=== PATIENT | male | born 1940 | race Caucasian/White ===

== ENCOUNTER 2024-10-17 20:21 | Inpatient (IN) | payer MEDICARE, MEDICAID ==
[~2024-10-17] VITALS: Ht 160 cm; Wt 73.2 kg
[~2024-10-17 20:21] MED LIST: DONE10TA43 PO; MEMA10TA20 PO
[2024-10-17] MEDS: SODIUM CHLORIDE 0.9% (SEPSIS BOLUS) IV ONE (21:18)
[2024-10-17] MEDS: CEFTRIAXONE 1GM/50ML 50 ML IV ONE (21:29)
[2024-10-17 21:37] LABS: BASOPHILS % 0.5 % (0.0-2.0); EOSINOPHILS % 2.5 % (0.0-5.0); HEMATOCRIT. 46.7 % (42.0-52.0); HEMOGLOBIN. 15.6 g/dL (14.0-18.0); LYMPHOCYTES % 15.3 % (20.0-50.0); MEAN CORPUSCULAR HEMOGLOBIN 31.3 pg (28.0-32.0); MEAN CORPUSCULAR HGB CONC 33.4 g/dL (31.0-37.0); MEAN CORPUSCULAR VOLUME 93.6 fL (80.0-94.0); MEAN PLATELET VOLUME 8.4 fl (7.4-10.4); MONOCYTES % 6.3 % (2.0-8.0); NEUTROPHILS % 75.4 % (40.0-76.0); PLATELET 321 x1000/uL (130-400); RED BLOOD CELL COUNT 4.99 mill/uL (4.7-6.1); RED CELL DISTRIBUTION WIDTH 15.1 % (11.6-14.6); WHITE BLOOD COUNT 12.1 x1000/uL (4.5-11.0)
[2024-10-17 21:43] LABS: CHLORIDE 109 mEq/L (98-107); POTASSIUM 3.9 mEq/L (3.5-5.1)
[2024-10-17 21:44] LABS: CARBON DIOXIDE 23 mEq/L (21-32); SODIUM 145 mEq/L (136-145)
[2024-10-17 21:45] LABS: CALCIUM 9.4 mg/dL (8.7-10.4)
[2024-10-17 21:49] LABS: CREATININE 2.1 mg/dL (0.6-1.3); GLUCOSE 164 mg/dL (70-105)
[2024-10-17 21:50] LABS: ETHANOL BLOOD < 10 mg/dL (<10); TROPONIN I HIGH SENSITIVITY 11 ng/L (3.0-53); UREA NITROGEN BLOOD 17 mg/dL (9-23)
[2024-10-17 21:51] LABS: ALANINE AMINOTRANSFERASE 21 IU/L (10-49); ALBUMIN 4.1 g/dL (3.2-4.8); ASPARTATE AMINOTRANSFERASE 24 IU/L (<34)
[2024-10-17 21:52] LABS: BILIRUBIN DIRECT 0.2 mg/dL (<=3.0); BILIRUBIN TOTAL 0.8 mg/dL (0.1-1.0); PROTEIN TOTAL 7.1 g/dL (6.0-8.3)
[2024-10-17 21:56] LABS: LACTIC ACID 2.5 mmol/L (0.4-2.0)
[2024-10-17] MEDS: AZITHROMYCIN 500MG/250ML 250 ML IV STA (22:37)
[2024-10-17 23:27] LABS: CLARITY URINE CLEAR (CLEAR); COLOR URINE YELLOW (YELLOW); GLUCOSE URINE NEGATIVE (NEGATIVE); KETONES URINE TRACE (NEGATIVE); LEUKOCYTE ESTERASE URINE NEGATIVE (NEGATIVE); NITRITE URINE NEGATIVE (NEGATIVE); OCCULT BLOOD URINE NEGATIVE (NEGATIVE); PROTEIN URINE NEGATIVE (NEGATIVE); SPECIFIC GRAVITY URINE 1.009 (1.005-1.030); UROBILINOGEN URINE 0.2 E.U./dL (0.2-1.0)
[2024-10-18 00:22] LABS: INR 1.1; PROTHROMBIN TIME 11.6 sec (9.6-11.0)
[2024-10-18] MEDS ORDERED: ACETAMINOPHEN 325MG TABLET PO PRN (00:45)
[2024-10-18] MEDS ORDERED: IPRATROPIUM/ALBUTEROL 0.5-3(2.5)MG/3ML NEB HHN PRN (00:45)
[2024-10-18] MEDS ORDERED: MAGNESIUM/ALUMINUM HYDROXIDE/SIMETHICONE 30ML UDC PO PRN (00:45)
[2024-10-18] MEDS ORDERED: DOCUSATE SODIUM 100MG CAPSULE PO PRN (00:45)
[2024-10-18 01:28] VITALS: BP 113/55; PULSE 77; RESP 18; TEMP 36.1
[2024-10-18 04:00] VITALS: BP 93/46; PULSE 93; RESP 18; TEMP 36.2; O2SAT 95
[2024-10-18 06:06] LABS: BASOPHILS % 0.4 % (0.0-2.0); EOSINOPHILS % 1.4 % (0.0-5.0); HEMATOCRIT. 36.9 % (42.0-52.0); HEMOGLOBIN. 12.8 g/dL (14.0-18.0); LYMPHOCYTES % 15.1 % (20.0-50.0); MEAN CORPUSCULAR HGB CONC 34.6 g/dL (31.0-37.0); MEAN CORPUSCULAR VOLUME 92.3 fL (80.0-94.0); MEAN PLATELET VOLUME 8.7 fl (7.4-10.4); MONOCYTES % 8.2 % (2.0-8.0); NEUTROPHILS % 74.9 % (40.0-76.0); PLATELET 263 x1000/uL (130-400); RED CELL DISTRIBUTION WIDTH 14.9 % (11.6-14.6); WHITE BLOOD COUNT 9.5 x1000/uL (4.5-11.0)
[2024-10-18 06:10] LABS: POTASSIUM 3.2 mEq/L (3.5-5.1)
[2024-10-18 06:15] LABS: TROPONIN I HIGH SENSITIVITY 10 ng/L (3.0-53)
[2024-10-18 06:16] LABS: CREATININE 1.7 mg/dL (0.6-1.3)
[2024-10-18 06:20] LABS: THYROID STIMULATING HORMONE 0.92 uIU/mL (0.55-4.78)
[2024-10-18 06:41] LABS: VITAMIN B12 SERUM > 2000 pg/mL (211-911)
[2024-10-18 08:19] VITALS: BP 119/72; PULSE 108; RESP 20; TEMP 36.7; O2SAT 96
[2024-10-18] MEDS: MEMANTINE HCL 10MG TABLET PO SCH (08:56)
[2024-10-18] MEDS: ENOXAPARIN 30MG/0.3ML SYR SUBCUT SCH (08:56)
[2024-10-18] MEDS: DONEPEZIL HCL 10MG TABLET PO SCH (08:57)
[2024-10-18] MEDS: PANTOPRAZOLE 40MG DR TABLET PO SCH (08:57)
[2024-10-18 11:40] VITALS: BP 120/72; PULSE 95; RESP 18; TEMP 36.7; O2SAT 97
[2024-10-18] MEDS: POTASSIUM CHLORIDE 20MEQ TABLET SR PO NR (13:24)
[2024-10-18 16:11] VITALS: BP 125/71; PULSE 84; RESP 20; TEMP 36.7; O2SAT 98
[2024-10-18] MEDS: POTASSIUM CHLORIDE 20MEQ/PACKET PO NR (18:33)
[2024-10-18] MEDS: POLYVINYL ALCOHOL OPHTH DROPS 15ML BOTHEYE SCH (18:33)
[2024-10-18 19:48] VITALS: BP 127/70; PULSE 79; RESP 18; TEMP 36.4; O2SAT 97
[2024-10-18] MEDS: CEFTRIAXONE 1GM/50ML 50 ML IV SCH (21:29)
[2024-10-18 22:25] LABS: TROPONIN I HIGH SENSITIVITY 14 ng/L (3.0-53)
[2024-10-19] VITALS: BP 120/67; PULSE 73; RESP 19; TEMP 36.7; O2SAT 97
[2024-10-19 04:00] VITALS: BP 147/95; PULSE 85; RESP 18; TEMP 36.7; O2SAT 96
[2024-10-19 08:00] VITALS: BP 145/71; PULSE 98; RESP 19; TEMP 36.5; O2SAT 98
[2024-10-19 12:00] VITALS: BP 139/66; PULSE 89; RESP 19; TEMP 36.4; O2SAT 99
[2024-10-19] MEDS ORDERED: VANCOMYCIN 1.5GM/250ML IV NR (12:00)
[2024-10-19] MEDS: VANCOMYCIN 1.5GM PMX (XELLIA) 300 ML IV NR (13:18)
[2024-10-19 16:00] VITALS: BP 129/65; PULSE 77; RESP 20; TEMP 36.6; O2SAT 98
[2024-10-19 16:49] LABS: BASOPHILS % 1.2 % (0.0-2.0); EOSINOPHILS % 5.3 % (0.0-5.0); HEMATOCRIT. 38.6 % (42.0-52.0); HEMOGLOBIN. 13.2 g/dL (14.0-18.0); LYMPHOCYTES % 22.1 % (20.0-50.0); MEAN CORPUSCULAR HGB CONC 34.1 g/dL (31.0-37.0); MEAN CORPUSCULAR VOLUME 93.9 fL (80.0-94.0); MEAN PLATELET VOLUME 9.1 fl (7.4-10.4); MONOCYTES % 7.4 % (2.0-8.0); PLATELET 272 x1000/uL (130-400); RED BLOOD CELL COUNT 4.11 mill/uL (4.7-6.1); RED CELL DISTRIBUTION WIDTH 14.9 % (11.6-14.6); WHITE BLOOD COUNT 10.1 x1000/uL (4.5-11.0)
[2024-10-19 17:01] LABS: CALCIUM 8.4 mg/dL (8.7-10.4)
[2024-10-19 17:06] LABS: CREATININE 1.5 mg/dL (0.6-1.3)
[2024-10-19 20:00] VITALS: BP 122/63; PULSE 70; RESP 18; TEMP 36.8; O2SAT 96
[2024-10-20] VITALS (7 sets, daily range): BP systolic 99–146; BP diastolic 59–82; PULSE 73–98; RESP 18–20; TEMP 36.4–36.9; O2SAT 97–100
[2024-10-20 07:29] LABS: BASOPHILS % 0.8 % (0.0-2.0); EOSINOPHILS % 5.5 % (0.0-5.0); HEMATOCRIT. 41.6 % (42.0-52.0); HEMOGLOBIN. 14.2 g/dL (14.0-18.0); LYMPHOCYTES % 28.2 % (20.0-50.0); MEAN CORPUSCULAR HEMOGLOBIN 31.5 pg (28.0-32.0); MEAN CORPUSCULAR HGB CONC 34.1 g/dL (31.0-37.0); MEAN CORPUSCULAR VOLUME 92.4 fL (80.0-94.0); NEUTROPHILS % 57.5 % (40.0-76.0); PLATELET 279 x1000/uL (130-400); RED CELL DISTRIBUTION WIDTH 14.7 % (11.6-14.6)
[2024-10-20 07:33] LABS: CALCIUM 8.6 mg/dL (8.7-10.4)
[2024-10-20 07:38] LABS: CREATININE 1.5 mg/dL (0.6-1.3)
[2024-10-20 08:46] LABS: ERYTHROCYTE SEDIMENTATION RATE 8 mm/hr (0-30)
[2024-10-20] MEDS ORDERED: VANCOMYCIN 750MG/150ML (BAXTER) IV SCH (21:00)
[2024-10-21] MEDS ORDERED: VANCOMYCIN 1.25GM/250ML IV SCH (12:00)
== END 2024-10-20 20:40 | disposition home or self-care (01) | DRG 73 ==
LOC: ER 20:21 → 7WST 23:42 → ENRESERV 23:54
PROVIDERS: ADMIT Internal Medicine Pulmonary Disease; ATTEND Internal Medicine Pulmonary Disease
PROC: 4B02XSZ Measurement of Cardiac Pacemaker, External Approach (ICD-10-PCS; 2024-10-19)
PROC: 4A00X4Z Measurement of Central Nervous Electrical Activity, External Approach (ICD-10-PCS; principal; 2024-10-20)
DX: G90.89 Other disorders of autonomic nervous system (principal); N17.0 Acute kidney failure with tubular necrosis; I42.9 Cardiomyopathy, unspecified; J98.11 Atelectasis; R78.81 Bacteremia; F02.80 Dementia in other diseases classified elsewhere, unspecified severity, without behavioral disturbance, psychotic disturbance, mood disturbance, and anxiety; S00.31XA Abrasion of nose, initial encounter; N18.9 Chronic kidney disease, unspecified; I50.9 Heart failure, unspecified; I12.9 Hypertensive chronic kidney disease with stage 1 through stage 4 chronic kidney disease, or unspecified chronic kidney disease; J44.89 Other specified chronic obstructive pulmonary disease; I25.10 Atherosclerotic heart disease of native coronary artery without angina pectoris; B95.7 Other staphylococcus as the cause of diseases classified elsewhere; G30.9 Alzheimer's disease, unspecified; X58.XXXA Exposure to other specified factors, initial encounter; Y93.89 Activity, other specified; Z95.0 Presence of cardiac pacemaker; Z95.1 Presence of aortocoronary bypass graft; Z79.899 Other long term (current) drug therapy; Y92.89 Other specified places as the place of occurrence of the external cause; Y99.8 Other external cause status
CPT/HCPCS: 36415; 71045; 80048; 80076; 80320; 81003; 82607; 82962; 83605; 84145; 84443; 84484; 85025; 85379; 85651; 93005; 93880; 95816; 97162; 99291; A4606; J0456; J0696; J1650; J3370; J7030; G0480